=== PATIENT | female | born 1945 ===

== ENCOUNTER 2019-04-26 05:02 | Outpatient (CLI) | payer MEDICARE | END 2019-04-26 23:59 | disposition home or self-care (01) | LOC: DIABETIC 05:02 | PROVIDERS: ATTEND Specialist | DX: E11.9 Type 2 diabetes mellitus without complications (principal) | CPT/HCPCS: G0108 ==

== ENCOUNTER 2019-05-30 01:17 | Outpatient (CLI) | payer MEDICARE | END 2019-05-30 23:59 | disposition home or self-care (01) | LOC: DIABETIC 01:17 | PROVIDERS: ATTEND Specialist | DX: E11.9 Type 2 diabetes mellitus without complications (principal) | CPT/HCPCS: G0108 ==